=== PATIENT | female | born 1970 | race Caucasian/White ===

== ENCOUNTER 2025-08-12 14:00 | Day surgery (SDC) | payer OTHER ==
[2025-08-12] MEDS: Polymyxin B/Trimethoprim 10 ML Bottle EYELF SCH (15:39)
[2025-08-12] MEDS: Tropicamide 1% Ophth Soln 3 ML Bottle EYELF SCH (15:54)
[2025-08-12] MEDS: Tetracaine HCl/PF 0.5% 4 ML Bottle EYEBOTH SCH (16:47)
[2025-08-12] MEDS: Cefuroxime 10 MG/ML SYRINGE EYELF SCH (17:21)
[2025-08-12] MEDS: Pilocarpine 4% Ophth Soln 15 ML Bot EYELF SCH (17:21)
[2025-08-12] MEDS: Lidocaine 1% PF 2 ML SDV INJECT SCH (17:28)
== END 2025-08-12 17:30 ==
LOC: JD.SDS 14:00
PROVIDERS: ATTEND Ophthalmology
DX: E11.36 Type 2 diabetes mellitus with diabetic cataract (principal); H25.813 Combined forms of age-related cataract, bilateral; E11.3293 Type 2 diabetes mellitus with mild nonproliferative diabetic retinopathy without macular edema, bilateral; H16.223 Keratoconjunctivitis sicca, not specified as Sjogren's, bilateral; H16.103 Unspecified superficial keratitis, bilateral; H02.831 Dermatochalasis of right upper eyelid; H02.834 Dermatochalasis of left upper eyelid; I10 Essential (primary) hypertension; Z91.09 Other allergy status, other than to drugs and biological substances; Z79.899 Other long term (current) drug therapy
CPT/HCPCS: 66984; A9270; J0697; J3490; V2632